=== PATIENT | male | born 1955 | race Caucasian/White ===

== ENCOUNTER 2019-08-14 09:51 | Outpatient (CLI) | payer MEDICARE, OTHER, SELFPAY ==
--- NOTE | 2019-08-14 | EST_ITS ---
Patient Info Name: Carlos Alberto Carmen Age: 64 years : 1955 Gender: Male Ht: 73 in Wt: 245 lbs BSA: 2.42 m2 Exam Date: 08/14/2019 11:04 AM Exam Location: [facility] [place] Stress Patient Status: Outpatient Admit Date: 08/14/2019 Staff Ordering Physician: Jim Rowley MD Attending Provider: Jim Rowley MD Nurse: Alberta Hackett, YESI, ACNP- Exam Type: CA stress tami w NM Study Info Indications Z01.818 - Encounter for other preprocedural examination A regadenoson stress test was performed. Summary 1. Nuclear test results to follow. 2. No abnormal ST-T wave changes with lexiscan. Protocol: Lexiscan Stress ECG Details Stage: REST Duration (min): 7 min : 5 sec HR (bpm): 49 SBP (mmHg): 158 DBP (mmHg): 79 Stage: REST Duration (min): 16 min : 13 sec HR (bpm): 56 SBP (mmHg): 158 DBP (mmHg): 79 Stage: STAGE 1 Duration (min): 1 min : 0 sec HR (bpm): 84 SBP (mmHg): 158 DBP (mmHg): 79 Stage: RECOVERY Duration (min): 1 min : 0 sec HR (bpm): 82 SBP (mmHg): 157 DBP (mmHg): 73 Stage: RECOVERY Duration (min): 2 min : 0 sec HR (bpm): 72 SBP (mmHg): 156 DBP (mmHg): 70 Stage: RECOVERY Duration (min): 3 min : 0 sec HR (bpm): 72 SBP (mmHg): 166 DBP (mmHg): 73 Stage: RECOVERY Duration (min): 3 min : 3 sec HR (bpm): 72 SBP (mmHg): 166 DBP (mmHg): 73 Rest HR: 56 bpm Peak HR: 88 bpm Rest Sys BP: 158 mmHg Peak Sys BP: 166 mmHg Max Pred HR: 155 bpm % Max Pred HR: 57 % Target HR: 132 bpm Max RPP: 14,608 bpm*mmHg BP Response: Normal blood pressure response Termination Reason: Completed protocol Cardiac Symptoms: Shortness of breath Total Time: 1 min : 0 sec Rest Cohen BP: 79 mmHg Peak Cohen BP: 73 mmHg Total Dose: 0.4 mg Resting ECG Sinus bradycardia. First degree A-V Block. Stress ECG No abnormal ST/T wave changes with exercise. Arrhythmias None. Report Signatures
--- NOTE | ~2019-08-14 | NM_ITS ---
EXAMINATION: NM tami stress w perfusion DATE: 08/14/2019 12:09 INDICATION: Coronary artery disease. Preoperative evaluation. TECHNIQUE: Rest images were obtained following intravenous administration of 9.9 mCi Tc99m tetrofosmi n (Myoview). The patient was infused intravenously with Lexiscan (Regadenoson). Then, 30.8 mCi Tc99m tetrofosmin (Myoview) was administered intravenously, and stress images were obtained. Data was recon structed into short axis and horizontal and vertical long axis SPECT images. Gated SPECT images were also obtained. COMPARISON: None. FINDINGS: There is no definite reversible or fixed perfusion abnormality to suggest ischemia or infar ction. There is normal left ventricular chamber size, wall motion and ejection fraction. Left ventr icular ejection fraction measures 58%. IMPRESSION: 1. Normal myocardial perfusion at rest and during stress. 2. Left ventricular ejection fraction measuring 58%. Reviewed, dictated and finalized at location A.
== END 2019-08-14 09:52 | disposition home or self-care (01) ==
PROVIDERS: PCP Internal Medicine; Visit Provider Internal Medicine Cardiovascular Disease
DX: Z01.818 Encounter for other preprocedural examination (principal); I25.10 Atherosclerotic heart disease of native coronary artery without angina pectoris
CPT/HCPCS: 78452; 93017; A9502; J2785

== ENCOUNTER 2019-08-15 00:15 | Outpatient (CLI) | payer MEDICARE, OTHER, SELFPAY ==
[2019-08-15 17:34] LABS: SARS-CoV-2 RNA PCR Negative
== END 2019-08-15 00:16 | disposition home or self-care (01) ==
LOC: ANHCOVIDDT 00:16
PROVIDERS: PCP Internal Medicine; Visit Provider Orthopaedic Surgery
DX: Z01.812 Encounter for preprocedural laboratory examination (principal); Z11.59 Encounter for screening for other viral diseases
CPT/HCPCS: 87635; C9803; U0003

== ENCOUNTER 2019-08-17 01:52 | Day surgery (SDC) | payer MEDICARE, OTHER, SELFPAY ==
[2019-08-14 12:59] VITALS: BMI 32.3
[2019-08-17] VITALS (11 sets, daily range): BP systolic 131–155; BP diastolic 59–73; PULSE 42–54; RESP 12–18; TEMP 36.2–36.4; O2SAT 95–99
--- NOTE | 2019-08-17 07:40 | WPDANESEPPF ---
Anes - Initial Pre Proc Eval Procedure: Operation Date: 08/17/19 12:30 Proposed Procedures p Right Mini Open Bicep Tenodesis with Arthroscopic Subscapularis Tendon Repair, Labral Debridement and Cyst Decompression - Antoine Green MD Date/Time: 08/17/19 07:40 Surgeon: Antoine Green MD Pre Op Diagnosis: Right Shoulder Bicep Tender Rupture, Right Shou Cy Patient Data Age: 64 Gender: M Height: 1.85 m Weight: 111.4 kg Allergies Allergy/AdvReac Type Severity Reaction Status Date / Time No Known Allergies Allergy Verified 08/17/19 11:11 Home Medications Medication Instructions Recorded Confirmed Type aspirin 81 mg tablet,delayed 81 mg PO DAILY 06/18/19 08/17/19 History release multivitamin 1 tablet PO DAILY 06/18/19 08/17/19 History nebivolol 2.5 mg tablet 2.5 mg PO DAILY 06/18/19 08/17/19 History rosuvastatin 40 mg sprinkle capsule 40 mg PO DAILY 06/18/19 08/17/19 History allopurinol 300 mg tablet 300 mg PO DAILY #90 tablet 07/11/19 08/17/19 Rx levothyroxine 50 mcg tablet 50 mcg PO DAILY #90 tablet 07/13/19 08/17/19 Rx icosapent ethyl 1 gram capsule 4 gm PO DAILY #120 cap 07/23/19 08/17/19 Rx Other Studies: Exam Type: CA stress tami w NM Study Info Indications Z01.818 - Encounter for other preprocedural examination A regadenoson stress test was performed. Summary 1. Nuclear test results to follow. 2. No abnormal ST-T wave changes with lexiscan. FINDINGS: There is no definite reversible or fixed perfusion abnormality to suggest ischemia or infarction. There is normal left ventricular chamber size, wall motion and ejection fraction. Left ventricular ejection fraction measures 58%. IMPRESSION: 1. Normal myocardial perfusion at rest and during stress. 2. Left ventricular ejection fraction measuring 58%. Patient hx anesthesia problems: none Family hx anesthesia problems: none [facility] Past Medical History Medical History (Updated 08/17/19 @ 07:42 by Lb Loza MD) 23-polyvalent pneumococcal polysaccharide vaccine contraindicated as received shingles vaccine within last 4 weeks Coronary artery disease involving [place] coronary artery of [place] heart Eczema Hypothyroidism, unspecified Mixed hyperlipidemia KEYON (obstructive sleep apnea) Partial tear of right subscapularis tendon Rotator cuff arthropathy of right shoulder Rupture of right long head biceps tendon Seasonal allergic rhinitis Surgical History Surgical History History of ankle surgery (~2017) History of bunionectomy (~1994) History of heart artery stent (~2015) Status post labral repair of shoulder (~2009) Social History Social History Smoking status: Never smoker Second hand tobacco smoke exposure: No Alcohol intake: current Anes - Eval Final PreProcedure Day of Procedure 08/17/19 07:40 Patient weight: obese Heart: regular rate and rhythm Lungs: clear to auscultation and normal air movement Airway: Mallampati scale class II Neurological: alert and oriented Last oral intake: >/= 8 hours ASA classification: III Emergent: no Anesthetic plan: proceed Anesthesia type and monitoring: general LMA and ETT Informed Consent: The patient's anesthetic plan and its attendant risks and benefits were discussed with the patient/family/POA. Questions were solicited and answers provided to the satisfaction of the patient/family/POA.
[2019-08-17] MEDS: LACTATED RINGERS 1,000 ML 30 ML IV CONT ×3 (11:10→16:27)
--- NOTE | 2019-08-17 11:43 | WPDANESPNB ---
Anes - Peripheral Nerve Block Date/Time: 08/17/19 11:43 I have discussed with the patient/family/POA the placement of a peripheral nerve block for post-operative pain management, including associated risks, benefits, complications, and side effects. Alternative methods of post-operative analgesia were detailed. Questions were solicited and answers provided to the satisfaction of the patient/family/POA. Time-Out: A pre-procedural Time-Out was completed immediately before starting the procedure and confirmed: Patient Identification, Site, Procedure, Patient Position and the Availability of Requisite Equipment. Clinical Indications: Acute post-operative pain management requested by the operative surgeon. Nerve Block Insertion Note Anes-nerve block: supraclavicular (20cc) right Patient position: supine Skin prep: chlorhexidine Needle: 22 gauge, stimulating, insulated echogenic needle. Needle length: 80 mm Technique: ultrasound (in plane) Injectate: bupivacaine 0.5% with epi 5 mcg/ml (20cc) Observations: tolerated well Complications: none Procedure start time:: 1230 Procedure end time:: 123
--- NOTE | 2019-08-17 13:45 | WPDHPUPDATE1 ---
History and Physical Update Update Date/Time: 08/17/19 13:45 History and Physical has been reviewed, including an updated exam of the patient. There are NO changes in the patient's condition. Risks, benefits, and alternatives have been discussed and questions answered. Patient agrees to proceed with procedure.
[2019-08-17] MEDS: ceFAZolin 2 GM/D5W 50 ML 2 GM/50 ML BAG IVPB (13:57)
[2019-08-17] MEDS: ONDANSETRON INJ 4 MG/2 ML VIAL IV PUSH (16:45)
[2019-08-17] MEDS: FAMOTIDINE 20 MG/2 ML VIAL IV PUSH (17:06)
--- NOTE | 2019-08-18 11:05 | PM.PROC ---
Procedure Note - Detailed Date of procedure: 08/17/19 Pre-op diagnosis: Right Shoulder Bicep Tender Rupture, Right Shou Cy Post-op diagnosis: other ( 1. Right shoulder proximal biceps tendon rupture. 2. Right shoulder subscapularis partial thickness tear. 3. Right shoulder degenerative superior and posterior labral tear, with paralabral cyst.) Procedure performed: 1. Arthrosocopic rotator cuff repair (subscapularis). 2. Arthroscopic labral debridement with posterior-superior labral cyst decompression. 3. Mini-open long head biceps subpectoral biceps tenodesis. Description of procedure: The biceps was disrupted and unstable. He had significant clinical symptoms. Biceps was displacing into a split in the upper subscapularis. The labrum showed significant degeneration throughout. At the 10 o'clock position there was significant cartilage disruption posteriorly. This was consistent with the location of the degenerative cyst. early degenerative grade 3 and 4 cartilage changes primarily at the periphery of the glenoid posteriorly and inferiorly. The humeral head appeared normal. The posterior rotator cuff was normal as well. Debridement was carried out with the arthroscopic shaver and the radiofrequency probe. The biceps tendon was released from its attachment at the superior labrum. The subscapularis was repaired with a single suture anchor horizontal mattress repair. The articular subscapularis showed low-grade articular side degenerative tearing; A2. The bursal rotator cuff showed minimal fraying. No significant evidence of impingement. Mini open biceps repair was accomplished with bone tunnels. Inspection of the tendon segement from the intertubercular groove showed extensive tendinosis of the biceps marked by flattening, degeneration and hyperemia. Implants: [employer] knotless peek suture anchor. [facility] Surgeon: Antoine Green MD Estimated blood loss (mL): 20 Complications: None Disposition: PACU Findings: Preoperative antibiotics were given. An interscalene block was administered in the preoperative area. The patient was bought brought to the operating room. A general anesthetic was administered. The patient was carefully positioned in the beach chair position. The head and neck were carefully positioned. The non operative extremity was also carefully positioned. The shoulder was prepped and draped in the usual sterile fashion. Examination was performed. Standard posterior and anterior arthroscopic portals were established. Inflow achieved with the arthroscopic pump using saline and epinephrine. The glenohumeral joint was carefully inspected. The biceps was released from the superior labrum. The labrum was carefully debrided and the cyst decompressed with the arthroscopic shaver. Gentle chondroplasty was performed along the periphery of the posterior and inferior glenoid. Slight debridement of the low-grade articular sided tearing of the supraspinatus was performed. The subscapularis was split. The medial portion appeared to be attached reasonably well. The upper portion was not retracted but was lifted off. It was in continuity with some bursal tissue. This was gently debrided and the upper anterior portion of the subscapularis was repaired with horizontal mattress sutures into a peek knotless anchor. The suture was passed with the suture Passer and suture shuttling. Attention was turned to the subacromial space. A complete bursectomy was performed. There was no evidence of impingement on the bursal side. Very minimal and superficial fraying was apparent on the rotator cuff, but essentially it appeared normal and healthy. There were no soft spots. The arthroscopic instruments were removed. An axillary incision was created at the pectoralis major insertion. The interval between the pectoralis and the short head of the biceps was dissected. The long head was identified. A retractor was placed at the pector
== END 2019-08-17 19:17 | disposition home or self-care (01) ==
PROVIDERS: PCP Internal Medicine; Visit Provider Orthopaedic Surgery
PROC: (CPT 29805; principal; 2019-08-17 12:30)
DX: S46.211A Strain of muscle, fascia and tendon of other parts of biceps, right arm, initial encounter (principal); S46.011A Strain of muscle(s) and tendon(s) of the rotator cuff of right shoulder, initial encounter; S43.431A Superior glenoid labrum lesion of right shoulder, initial encounter; M24.111 Other articular cartilage disorders, right shoulder; M67.813 Other specified disorders of tendon, right shoulder; G89.18 Other acute postprocedural pain; I10 Essential (primary) hypertension; E78.2 Mixed hyperlipidemia; E03.9 Hypothyroidism, unspecified; G47.33 Obstructive sleep apnea (adult) (pediatric); E66.9 Obesity, unspecified; Z68.32 Body mass index [BMI] 32.0-32.9, adult; I25.10 Atherosclerotic heart disease of native coronary artery without angina pectoris; Z95.5 Presence of coronary angioplasty implant and graft; Z79.899 Other long term (current) drug therapy; Z79.82 Long term (current) use of aspirin; X58.XXXA Exposure to other specified factors, initial encounter
CPT/HCPCS: 24342; 29827; 64415; A9270; J0131; J0330; J0690; J1100; J1170; J1200; J1885; J2250; J2405; J2704; J2710; J3010; J7120

== ENCOUNTER 2021-10-12 12:45 | Outpatient (CLI) | payer MEDICARE, OTHER, SELFPAY ==
--- NOTE | ~2021-10-12 | US_ITS ---
EXAMINATION: US renal BI DATE: 10/12/2021 13:57 INDICATION: Acute kidney failure TECHNIQUE: Multiple ultrasound grayscale images of the kidneys were obtained. COMPARISON: None. FINDINGS: The right kidney measures 12.8 x 7.1 x 5.9 cm. The left kidney measures 10.0 x 5.1 x 5.5 cm. The kidn eys demonstrate normal echogenicity. There is no hydronephrosis in either kidney. No stones identifi ed. The bladder is normal. IMPRESSION: 1. Normal kidneys without hydronephrosis. Reviewed, dictated and finalized at location A.
== END 2021-10-12 12:46 | disposition home or self-care (01) ==
PROVIDERS: PCP Internal Medicine; Visit Provider Internal Medicine Nephrology
DX: N17.8 Other acute kidney failure (principal); R79.89 Other specified abnormal findings of blood chemistry
CPT/HCPCS: 76775

== ENCOUNTER 2022-08-03 12:30 | Outpatient (CLI) | payer MEDICARE, SELFPAY ==
--- NOTE | ~2022-08-03 | US_ITS ---
EXAMINATION: US carotid duplex BI DATE: 08/03/2022 13:04 INDICATION: Carotid bruit TECHNIQUE: Grayscale, color Doppler, and pulsed Doppler images of the cervical carotid arteries were obtained. The degree of vessel stenosis is placed in one of the following categories: normal, <50%, 5 0-69%, >=70% but less than near-occlusion, near-occlusion, or total occlusion. Note that percent sten osis relative to normal distal artery lumen diameter is indirectly measured from velocity measurement s as described by Michael, et al. Radiology 2003; 229:340-346. Notes: Normal: Peak systolic velocity <125 centimeters/sec and no plaque <50%. Peak systolic velocity <125 ( EDV <40; ICA/CCA PSV ratio <2.0; used these factors only a tandem lesions or low cardiac output or co ntralateral disease) 50-69 %: PSV 125-230 (EDV 40-100; ratio 2-4) >= 70% but less than near occlusion: PSV greater than 230 (EDV > 100; ratio> 4.0) Near Occlusion: PSV that is variable; markedly narrowed lumen Occlusion: Absent flow on color/spectral Doppler and no lumen on ramirez scale. COMPARISON: None. FINDINGS: RIGHT: The right common carotid artery (CCA) peak systolic velocity (PSV) is 90 cm/s. The right internal car otid artery (ICA) PSV is 87 cm/s. The right ICA end-diastolic velocity (EDV) is 26 cm/s. The right IC A/CCA PSV ratio is 1.0. The external carotid artery (ECA) PSV is 73 cm/s. There is antegrade flow in the right vertebral artery. LEFT: The left CCA PSV is 105 cm/s. The left ICA PSV is 102 cm/s. The left ICA EDV is 35 cm/s. The left ICA /CCA PSV ratio is 1.0. The ECA PSV is 84 cm/s. There is antegrade flow in the left vertebral artery. IMPRESSION: 1. Less than 50% stenosis in the right internal carotid artery by sonographic criteria. 2. Less than 50% stenosis in the left internal carotid artery by sonographic criteria. Reviewed, dictated and finalized at location L. IMPRESSION: 1. Less than 50% stenosis in the right internal carotid artery by sonographic sandro almaguer. 2. Less than 50% stenosis in the left internal carotid artery by sonographic conor hernandez.
== END 2022-08-03 12:31 | disposition home or self-care (01) ==
LOC: ANHIMG 12:34
PROVIDERS: PCP Family Medicine; Visit Provider Internal Medicine Cardiovascular Disease
DX: R09.89 Other specified symptoms and signs involving the circulatory and respiratory systems (principal); I65.23 Occlusion and stenosis of bilateral carotid arteries
CPT/HCPCS: 93880

== ENCOUNTER → 2022-10-14 09:10 | Outpatient (CLI) | payer MEDICARE, SELFPAY ==
--- NOTE | ~2022-10-14 | MR_ITS ---
EXAMINATION: MR knee RT wo con DATE: 10/14/2022 10:01 INDICATION: Unspecified internal derangement of the right knee TECHNIQUE: Magnetic resonance imaging (MRI) of the right knee was performed without intravenous contr ast. Sequences included coronal PD-weighted FSE, coronal PD-weighted FS FSE, sagittal T2-weighted FS E, sagittal PD-weighted FS FSE and axial PD weighted fat saturated FSE. COMPARISON: None. FINDINGS: Medial compartment: Complex tear of the body and posterior horn of the medial meniscus which includes both longitudinal h orizontal component, radial component involving the inner third of the posterior horn and tear of ind eterminate morphology at the body. Articular cartilage is normal. Lateral compartment: Lateral meniscus is normal. Articular cartilage is normal. Patellofemoral compartment: Shallow chondral fissure at the cephalad through the patellar apical ridge. There is a bipartite martin lla with additional chondral fissures line the cephalad and caudal aspect of the syndesmosis. Deep ch ondral ulceration with underlying cortical irregularity involving the caudal half of the medial troch edwin, the caudal two thirds of the trochlear groove and central aspect of the lateral trochlea. Ligaments and tendons: Anterior and posterior cruciate ligaments are normal. Mild thickening and minimal increased signal th e proximal medial collateral ligament without significant surrounding edema consistent with likely sc arring related to chronic sprain. The fibular collateral ligament complex is normal. Patellar tendon is normal. Mild distal quadriceps tendinopathy. The visualized medial and lateral hamstring tendons a s well as the iliotibial band are normal. Fluid: Small right knee joint effusion. No loose osteochondral bodies identified. Small Khalil's cyst. Osseous/other: Bone alignment is normal. No fracture or pathologic marrow replacing process. IMPRESSION: 1. Complex tear of the body and posterior horn of the medial meniscus. 2. 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 3. Normal variant bipartite patella with mild tendinopathy at the distal quadriceps tendon. 4. Small right knee joint effusion and small Khalil's cyst. Reviewed, dictated and finalized at location A. IMPRESSION: 1. Complex tear of the body and posterior horn of the medial meniscus. 2. Mild to moderate patellofemoral osteoarthritis with signs of high-grade jyoti dromalacia in the trochlea and moderate grade patellar chondromalacia. 3. Normal variant bipartite patella with mild tendinopathy at the distal josé antonio ceps tendon. 4. Small right knee joint effusion and small Khalil's cyst.
== END ==
PROVIDERS: PCP Nurse Practitioner; Visit Provider Physician Assistant Surgical
DX: M23.91 Unspecified internal derangement of right knee (principal); S83.231A Complex tear of medial meniscus, current injury, right knee, initial encounter; M17.11 Unilateral primary osteoarthritis, right knee; M22.41 Chondromalacia patellae, right knee; M25.461 Effusion, right knee; M71.21 Synovial cyst of popliteal space [Baker], right knee; T14.90XA Injury, unspecified, initial encounter
CPT/HCPCS: 73721

== ENCOUNTER 2022-11-15 10:01 | Outpatient (CLI) | payer MEDICARE, SELFPAY ==
--- NOTE | 2022-11-15 10:19 | ECG_ITS ---
Measurements Intervals [place] Rate: 48 P: 50 NM: 266 QRS: -28 QRSD: 124 T: 4 QT: 443 QTc: 396 Interpretive Statements SINUS BRADYCARDIA WITH FIRST DEGREE AV BLOCK INCOMPLETE RIGHT BUNDLE BRANCH BLOCK LEFT VENTRICULAR HYPERTROPHY MINIMAL Q WAVES- HIGH LATERAL LEADS BORDERLINE ECG NO PREVIOUS ECG AVAILABLE FOR COMPARISON Electronically Signed On 11-15-2022 11:20:25 CDT by Tung Harris D.O.
[2022-11-15 11:03] LABS: Prothrombin Time 13.2 Seconds (11.1-14.7)
[2022-11-15 11:05] LABS: Partial Thromboplastin Time 26.3 SECONDS (22.3-36.8)
== END 2022-11-15 10:02 | disposition home or self-care (01) ==
LOC: ANHSURGERY 10:07
PROVIDERS: Anesthesiology; PCP Nurse Practitioner; Visit Provider Orthopaedic Surgery
DX: I12.9 Hypertensive chronic kidney disease with stage 1 through stage 4 chronic kidney disease, or unspecified chronic kidney disease (principal); N18.31 Chronic kidney disease, stage 3a
CPT/HCPCS: 36415; 85610; 85730; 93005

== ENCOUNTER 2022-11-18 01:21 | Day surgery (SDC) | payer MEDICARE, SELFPAY ==
[2022-11-11 15:54] VITALS: BMI 34.6
--- NOTE | 2022-11-11 16:15 | PC.NURSE ---
Report to the Outpatient Waiting Room, entrance under the green pavilion located off [facility], at time __8:30AM on date __11/18/22 . Planned Procedure Time: __10:30AM . Time changes happen often and if your time is changed the preop area will call you the afternoon before. - You and your visitor will be asked to self-screen and do not enter if you have any COVID symptoms. - A mask is optional within the hospital at this time. Patients may have clear liquids (water, carbonated beverages, clear teas, apple juice) until 3 hours prior to surgery with a maximum of 20 ounces. - No food from midnight until time of surgery - Infants may have breast milk until 4 hours before surgery, infant formula 6 hours prior to surgery. - Children will be allowed to drink immediately following surgery. If applicable, please bring a bottle or sippy cup to assist with drinking. Juice, water, soda, and popsicles are readily available. For infants on formula, please bring formula the day of surgery. Pacifiers are allowed. Take the following medications with a SIP of water the morning of surgery: ___LEVOTHYROXINE, NEBIVOLOL DO NOT STOP ANY OF YOUR OTHER PRESCRIPTION MEDICATIONS PRIOR TO SURGERY ?EXCEPT THE FOLLOWING Medications to discontinue per physician ___HOLD ASPIRIN AND ALL VITAMINS/SUPPLEMENTS 7 DAYS PRE-OP PER DR CAT (PER PATIENT) Date to take last dose___11/11/22 Please no make-up, nail bengali, hairspray, perfume, deodorant, or body powder the day of surgery. No jewelry (including any body piercings) or valuables the day of surgery, leave them at hoing. Children are encouraged to wear [email or web address].me. Please take a shower or bath the night before, or the morning of, surgery with an antibacterial soap. Wear comfortable, loose fitting clothing. - Jewelry must be removed prior to entering the operating room. Rings and piercings that are not removed may be cut off. - The hospital will not accept responsibility for valuables. - Please leave all valuables, including medications, at home the day of surgery. If you are going home after surgery, a licensed hi low truck driver must drive you home. - NO public transportation without another adult if you receive anesthesia. - We recommend that an adult stay with you for 24 hours following discharge. - We also recommend that you do not drive, make important decision, drink alcoholic beverages, or take any drugs that were not prescribed by your health care provider for at least 24 hours after your discharge time. Follow any additional instructions given to you from your surgeon. If you or anyone in your household have experienced Covid symptoms in the past week, please notify your surgeon or the nurse liaison at the phone number below for possible testing. Telephone instructions given to ___patient and asked if any additional questions and then verbalized understanding. Patient advised to call surgeon office or pre surgery nurse liaison [phone] if any additional questions.
[2022-11-18] VITALS (7 sets, daily range): BP systolic 130–144; BP diastolic 50–69; PULSE 53–74; RESP 16–18; TEMP 36.4–36.5; O2SAT 96–100; BMI 34.4
--- NOTE | 2022-11-18 07:17 | WPDHPUPDATE1 ---
History and Physical Update Update Date/Time: 11/18/22 07:17 History and Physical has been reviewed, including an updated exam of the patient. There are NO changes in the patient's condition. Risks, benefits, and alternatives have been discussed and questions answered. Patient agrees to proceed with procedure.
[2022-11-18] MEDS: LACTATED RINGERS 1,000 ML 30 ML IV CONT (09:15)
[2022-11-18] MEDS: KETOROLAC 15 MG/ML VIAL (*BKC) IV PUSH (09:42)
[2022-11-18] MEDS: ACETAMINOPHEN 500 MG TABLET 1000 MG PO (09:42)
--- NOTE | 2022-11-18 09:49 | WPDANESEPPF ---
Anes - Initial Pre Proc Eval Procedure: Operation Date: 11/18/22 10:30 Proposed Procedures p Right Knee Arthroscopic Partial Medial Meniscectomy - Antoine Green MD Date/Time: 11/18/22 09:49 Surgeon: Antoine Green MD Pre Op Diagnosis: Rt Knee Medial Meniscus Tear Patient Data Age: 67 Gender: M Height: 1.85 m Weight: 118.6 kg Last Vital Signs Temp 36.4 C 11/18/22 08:32 Pulse 55 L 11/18/22 08:32 Resp 16 11/18/22 08:32 BP 139/68 11/18/22 08:32 Pulse Ox 97 11/18/22 08:32 O2 Del Method Room Air 11/18/22 08:32 Allergies Allergy/AdvReac Type Severity Reaction Status Date / Time No Known Allergies Allergy Verified 11/18/22 09:30 Home Medications Medication Instructions Recorded Confirmed Type aspirin 81 mg tablet,delayed 81 mg PO DAILY 06/18/19 11/11/22 History release (Adult Low Dose Aspirin) multivitamin 1 tablet PO DAILY 06/18/19 11/11/22 History rosuvastatin 40 mg tablet 40 mg PO DAILY 90 days #90 tabs 12/20/19 11/11/22 Rx allopurinol 300 mg tablet See Rx Instructions .Route 10/07/22 11/11/22 Rx .COMPLEX #90 tabs icosapent ethyl 1 gram capsule 4 g PO DAILY 11/11/22 11/11/22 History (Vascepa) levothyroxine 75 mcg tablet 75 mcg PO QAM 11/11/22 11/11/22 History (Synthroid) nebivolol 2.5 mg tablet (Bystolic) 2.5 mg PO QAM 11/11/22 11/11/22 History nitroglycerin 0.4 mg sublingual 0.4 mg sublingual Q5-15M PRN Chest 11/11/22 11/11/22 History tablet Pain sildenafil 25 mg tablet (Viagra) 25 mg PO DAILY PRN Erectile 11/11/22 11/11/22 History Dysfunction tramadol 50 mg tablet 50 mg PO HS PRN Pain 11/11/22 11/11/22 History hydrocodone 5 mg-acetaminophen 325 1 - 2 tablet PO Q4-6H PRN pain #30 11/18/22 Rx mg tablet tabs Patient hx anesthesia problems: none Family hx anesthesia problems: none Results Review: All pre-operative results and documents have been reviewed as part of the pre-operative evaluation. [facility] Past Medical History Medical History 23-polyvalent pneumococcal polysaccharide vaccine contraindicated as received shingles vaccine within last 4 weeks Abnormal blood chemistry Arthritis of subtalar joint CAD S/P percutaneous coronary angioplasty Coronary artery disease involving buckland coronary artery of buckland heart Eczema Encounter for special screening examination for neoplasm of prostate Hyperglycemia Hypothyroidism, unspecified Mixed hyperlipidemia KEYON (obstructive sleep apnea) Partial tear of right subscapularis tendon Rotator cuff arthropathy of right shoulder Rupture of right long head biceps tendon Screening PSA (prostate specific antigen) Seasonal allergic rhinitis Vitamin D deficiency, unspecified Surgical History Surgical History History of ankle surgery (~2017) History of bunionectomy (~1994) History of heart artery stent (~2015) Status post labral repair of shoulder (~2009) Family History Family History Grandparent Malignant neoplasm of prostate Father Family history of malignant neoplasm of kidney Unknown Heart disease Other Family history of malignant neoplasm Social History Social History Smoking packs per day: 1 Smoking cigarettes per day: 20.0 Years smoked: 20 Smoking pack-years: 20.00 Smoking status: Former smoker Tobacco type: cigarettes Second hand tobacco smoke exposure: No Smoking end date: 08/21/89 Alcohol intake: current Drinks per week: 3 Substance use: never Substance use type: does not use Lack of Transportation: No Lack of Food: Never True Current Housing: I Have Housing Concerned About Future Housing: No Difficulty Paying Gas/Electric Bills: No Difficulty Paying for Meds: No Currently Unemployed: No Education: High School Diploma/GED Jacqueline
[2022-11-18] MEDS: ceFAZolin 2 GM/D5W 50 ML 2 GM/50 ML BAG IVPB (10:28)
[2022-11-18] MEDS: BUPIVACAINE/EPINEPHRINE 0.5% 50 ML VIAL 30 ML INFILTRATE (10:51)
--- NOTE | 2022-11-18 11:34 | W.PM.PROC2 ---
Procedure Note - Detailed Date of Procedure 11/18/22 Pre-op Diagnosis Rt Knee Medial Meniscus Tear Post-op Diagnosis Same Procedure Performed Arthroscopic partial medial meniscectomy, right knee. 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 Lateral femur chondromalacia grade 0, lateral tibia grade 0. Patellar grade 1, trochlea grade 2. Description of Procedure The patient was identified and the surgical site confirmed and signed in the preoperative holding area. Antibiotics were started per protocol. He was brought to the operative room and transferred to the OR table. A general anesthetic was administered. Supine position with the operative lower extremity position in the leg knott after placement of a well padded tourniquet. The leg support was lowered and the contralateral limb was supported with a soft bolster. The knee was prepped and draped in the usual sterile fashion. A time-out was performed. The portal sites were marked and infiltrated with 0.5% Marcaine 20 mL. The limb was exsanguinated and the tourniquet inflated to 300 mL Hg. Standard inferolateral and inferomedial portals were established. Inflow was obtained with the saline pump. The camera was introduced. Diagnostic inspection of the joint was accomplished. The meniscus was debrided with the arthroscopic shaver and punches until stable. The radiofrequency probe was also used for further d?bridement. The arthroscopic instruments were removed. The tourniquet released and wounds closed with subcutaneous 4-0 Monocryl absorbable suture. Steri strips and a sterile dressing were applied. A light elastic wrap was placed. The patient was extubated and brought to the recovery room in stable condition. Estimated Blood Loss 5 Tourniquet Time 21 Drains No Complications No immediate complications Condition Stable Disposition PACU [facility] Billing Surgery - Charge Forward: Surgery Billing
[2022-11-18] MEDS: oxyCODONE HCL (*CRX) 5 MG TAB IR PO (12:43)
== END 2022-11-18 13:10 | disposition home or self-care (01) ==
PROVIDERS: PCP Nurse Practitioner; Visit Provider Orthopaedic Surgery
PROC: (CPT 29870; principal; 2022-11-18 10:30)
DX: M23.331 Other meniscus derangements, other medial meniscus, right knee (principal); M22.41 Chondromalacia patellae, right knee; I25.10 Atherosclerotic heart disease of native coronary artery without angina pectoris; E03.9 Hypothyroidism, unspecified; E78.2 Mixed hyperlipidemia; G47.33 Obstructive sleep apnea (adult) (pediatric); E55.9 Vitamin D deficiency, unspecified; Z95.5 Presence of coronary angioplasty implant and graft; Z87.891 Personal history of nicotine dependence; E66.9 Obesity, unspecified; Z68.34 Body mass index [BMI] 34.0-34.9, adult; Z79.82 Long term (current) use of aspirin
CPT/HCPCS: 29881; A9270; J0690; J1100; J1885; J2250; J2405; J2704; J3010; J7120

== ENCOUNTER 2023-11-06 12:48 | Emergency (ER) | payer MEDICARE, SELFPAY ==
--- NOTE | ~2023-11-06 | XR_ITS ---
EXAMINATION: XR chest 2V DATE: 11/06/2023 13:12 INDICATION: Cough TECHNIQUE: PA and lateral views of the chest were obtained. COMPARISON: Chest radiograph and CT dated 12/13/2016 FINDINGS: The lungs are clear with no focal airspace opacities, pulmonary edema, pleural effusion or pneumothor ax. The cardiomediastinal silhouette is normal. Couple old healed posterior left third-sixth rib frac tures. IMPRESSION: 1. No acute cardiopulmonary disease. Reviewed, dictated and finalized at location A.
[2023-11-06 12:56] VITALS: BP 133/62; PULSE 58; RESP 18; TEMP 36.6; O2SAT 98
[2023-11-06 12:57] VITALS: BP 133/62; PULSE 58; RESP 18; TEMP 36.6; O2SAT 98
--- NOTE | 2023-11-06 13:06 | ED.URI ---
HPI - URI/Sore Throat General Chief Complaint: Upper Respiratory Infection Stated Complaint: cold symthoms Source: patient Mode of arrival: ambulatory Limitations: no limitations History of Present Illness HPI Narrative: 68-year-old male presents to [facility] with complaints of 2 day history of nonproductive cough, sinus pressure, nasal congestion, runny nose and body aches. Patient has been taking [id number] cold medications and multivitamins with little relief. Patient denies sick contacts. Patient reports that he did recently travel to [place] last week. Patient is a nonsmoker. MD elicited complaint: cough, rhinorrhea and nasal congestion Onset (ago): day(s) (2) Severity: mild Able to tolerate fluids by mouth: Yes Treatments prior to arrival: cold medicine Related Data Home Medications Medication Instructions Recorded Confirmed aspirin 81 mg tablet,delayed 81 mg PO DAILY 06/18/19 11/06/23 release (Adult Low Dose Aspirin) multivitamin 1 tablet PO DAILY 06/18/19 11/06/23 nebivolol 2.5 mg tablet (Bystolic) 2.5 mg PO QAM 11/11/22 11/06/23 nitroglycerin 0.4 mg sublingual 0.4 mg sublingual Q5-15M PRN Chest 11/11/22 11/06/23 tablet Pain sildenafil 25 mg tablet (Viagra) 25 mg PO DAILY PRN Erectile 11/11/22 11/06/23 Dysfunction magnesium 200 mg tablet 200 mg PO DAILY 09/27/23 11/06/23 Allergies Allergy/AdvReac Type Severity Reaction Status Date / Time No Known Allergies Allergy Verified 11/06/23 12:56 Review of Systems Constitutional: Constitutional: Denies chills, Denies fatigue, Denies fever(s) and Denies weakness Comments: Body aches ENT: Denies dizziness, Denies epistaxis, Reports nasal congestion and Denies sore throat Cardiovascular: Cardiovascular: Denies chest pain Respiratory: Respiratory: Denies chest congestion, Reports cough, Denies dyspnea and Denies wheezing Gastrointestinal: Gastrointestinal: Denies diarrhea, Denies nausea and Denies vomiting Integumentary/Breasts: Skin/Breast: Denies erythema and Denies rash Neurologic: Denies dizziness, Denies syncope and Denies headache(s) [facility] Past Medical History Medical History 23-polyvalent pneumococcal polysaccharide vaccine contraindicated as received shingles vaccine within last 4 weeks Abnormal blood chemistry Arthritis of subtalar joint CAD S/P percutaneous coronary angioplasty Coronary artery disease involving hoh coronary artery of hoh heart Eczema Encounter for special screening examination for neoplasm of prostate Hyperglycemia Hypothyroidism, unspecified Mixed hyperlipidemia KEYON (obstructive sleep apnea) Partial tear of right subscapularis tendon Rotator cuff arthropathy of right shoulder Rupture of right long head biceps tendon Screening PSA (prostate specific antigen) Seasonal allergic rhinitis Vitamin D deficiency, unspecified Surgical History Surgical History History of ankle surgery (~2017) History of bunionectomy (~1994) History of heart artery stent (~2015) History of meniscectomy of right knee (~11/18/22) medial Status post labral repair of shoulder (~2009) Family History Family History Grandparent Malignant neoplasm of prostate Father Family history of malignant neoplasm of kidney Unknown Heart disease Other Family history of malignant neoplasm Social History Social History Smoking packs per day: 1 Smoking cigarettes per day: 20.0 Years smoked: 20 Smoking pack-years: 20.00 Smoking status: Former smoker Tobacco type: cigarettes Second hand tobacco smoke exposure: No Smoking end date: 08/21/89 Alcohol intake: current Drinks per week: 3 Substance use: never Substance use type: does not use Do You Feel Safe in your Home?: Yes Lack of Transportati
[2023-11-06 13:26] LABS: EDCOVIDSCREEN Negative (Negative); EDINFLUASCREEN Negative (Negative); EDINFLUBSCREEN Negative (Negative)
== END 2023-11-06 13:34 | disposition home or self-care (01) ==
PROVIDERS: Emergency Provider Nurse Practitioner Family; PCP Nurse Practitioner
DX: B34.9 Viral infection, unspecified (principal); Z20.822 Contact with and (suspected) exposure to COVID-19; Z87.891 Personal history of nicotine dependence; I25.10 Atherosclerotic heart disease of native coronary artery without angina pectoris; E03.9 Hypothyroidism, unspecified; E78.2 Mixed hyperlipidemia; E55.9 Vitamin D deficiency, unspecified; Z95.5 Presence of coronary angioplasty implant and graft
CPT/HCPCS: 71046; 87635; 87804; 99213; G0463

== ENCOUNTER 2024-10-12 08:34 | Outpatient (CLI) | payer MEDICARE, SELFPAY ==
--- NOTE | ~2024-10-12 | XR_ITS ---
XR shoulder RT min 2V 10/12/2024 08:53 Indication: Right shoulder pain Procedure: 4 views right shoulder Comparison: Comparison to multiple prior studies sequentially, with oldest reviewed study dated 02/12/2019. Findings: There is an osteochondroma originating from the proximal humeral metaphysis. There is mild polyarticular osteoarthritis of the shoulder. No acute fracture, subluxation or dislocation. Impression: 1: Mild osteoarthritis of the right shoulder. Reviewed, dictated and finalized at location O. Impression: 1: Mild osteoarthritis of the right shoulder.
--- OUTSIDE RECORDS SUMMARY | 2024-10-12 08:40 | XMS_ITS | Clinical Summary ---
Author Organization [facility] Address [address] [place] [address] Care Team Providers Care Board Runner Name Role Phone Unavailable Primary Care Provider Unavailabl e Source Comments [facility],non-owned Affiliates and Associated Physician Practices is amultiple site organization consisting of ambulatory clinics and hospital sitesin [place], [place], [place] and [place]. This disclosure is being madepursuant to the Care Everywhere program and may not contain all information available regarding this patient. 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 Gender Identity Not on file Sexual Orientation Not on file Plan of Treatment Health Maintenance Due Date Last Done Comments COLOGUARD (AGES 45-75) - COL ON CA SCREENING 1954 COLON MONITORING 1954 COLONOSCOPY - COLON CA SCREENING 1954 CT COLONOGRAPHY - COLON CA SCREENING 1955 Colorectal Cancer Screening 1954 FIT - COLON CA SCREENING 1954 FLEX SIG - COLON CA SCREENING 1954 LIPID TESTING 1955 HEPATITIS C SCREENING 04/19/1972 PNEUMOCOCCAL VACCINE 50+ (1 of 1 - PCV) 2004 ZOSTER VACCINE (1 of 2) 2004 COVID-19 VACCINE ( - 2023-2 5 season) 2023 DEPRESSION SCREENING 02/22/2024 INFLUENZA VACCINE (#1) 2024 DTAP/TDAP/TD VACCINES (2 - T d or Tdap) 11/04/2027 11/03/2017 Respiratory Syncytial Virus (RSV) Vaccine Pt: or over 60 yrs (1 - 1-dose 75+ series) 2029 HEPATITIS B VACCINE Aged Out No longe r eligible based on patient's age to complete this topic HIB VACCINE Aged Out No longer eligi ble based on patient's age to complete this topic HPV VACCINE Aged Out No longer eligi ble based on patient's age to complete this topic MENINGOCOCCAL (Group B) VACC INE SHARED DECISION-MAKING Aged Out No longer eligibl e based on patient's age to complete this topic MENINGOCOCCAL GROUPS A/C/Y/W VACCINE Aged Out No longer eligible b ased on patient's age to complete this topic Insurance AETNA MEDICARE AETNA AETNA MEDICARE AETNA AETNA
--- OUTSIDE RECORDS SUMMARY | 2024-10-12 08:40 | XMS_ITS | Encounter Summary ---
Author Organization [facility] Address [address] [place] [address] Care Team Providers Care Rn Intern Name Role Phone Unavailable Primary Care Provider Unavailabl e Encounter Details Date Type Department Care Team (Late st Contact Info) Description 07/06/2019 Lab Requisition [facility] [address] [place] [address] Martha Thibodeaux DO 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 Gender Identity Not on file Sexual Orientation Not on file documented as of this encounter Plan of Treatment Not on file documented as of this encounter Procedures Procedure Name Priority Date/Time Associated Diagnosis Comments DERMATOPATHOLOGY Routine 07/05/2019 12:0 0 AM CDT documented in this encounter Results * DERMATOPATHOLOGY (07/05/2019 12:00 AM CDT) Case Report Dermatopathology Report Case: [id number] Authorizing Provider: Martha Thibodeaux DO Collected: 07/05/2019 12:00 AM Ordering Location: [facility] Received: 07/06/2019 06:46 AM Pathologist: Niharika Verduzco MD Specimen: Skin, right cheek 0 12:54 PM CDT DERMATOPATHOLOGY LABORATORY Final Diagnosis Specimen A. SKIN, right cheek: ACTINIC KERATOSIS; EXTENDING TO THE BASE OF THE SPECIMEN (L57.0) (see microscopic description and comment) 0 12:54 PM CDT DERMATOPATHOLOGY LABORATORY at 1254 CDT Clinical History AK R/O NMSC 0 12:54 PM CDT DERMATOPATHOLOGY LABORATORY Gross Description Specimen A: Received is one formalin filled container labeled with the patient's name and designated right cheek. The specimen consists of a shave biopsy measuring 6x4x1 mm. Jar 0. 0 12:54 PM CDT DERMATOPATHOLOGY LABORATORY Microscopic Description Specimen A. SKIN, right cheek: There is focal parakeratosis. The lower half of the epidermis shows disorderly maturation of keratinocytes with nuclear pleomorphism. Follicular extension is present. This process extends to the base of the specimen. COMMENT: A squamous cell carcinoma cannot be ruled out. 0 12:54 PM CDT DERMATOPATHOLOGY LABORATORY Disclaimer An external and internal positive and negative controls are appropriate for the histochemical, immunohistochemical and immunofluorescence stain(s) in this case (if any), except where stated explicitly. The performance characteristics of the stain(s) cited in this report were developed and its performance characteristic determined by the Dermatopathology Laboratory at [facility], directed by Dr. Nuris Davis. These tests need not be, and therefore are not, approved by the [place] Food and Drug Administration. The tests are used for clinical purposes. Billing Codes Specimen Charges Stain Charges 71414 1 0 12:54 PM CDT DERMATOPATHOLOGY LABORATORY Embedded Images 0 12:54 PM CDT DERMATOPATHOLOGY LABORATORY Pathology/Cytolog y TISSUE SPECIMEN FROM SKIN / Unknown 07/05/2019 07/06/2019 6:46 AM CDT us Martha Thibodeaux DO LAB - PATHOLOGY/CYTOLOGY ORDERABLES Final Result DERMATOPATHOLOGY LABORATORY [facility] - Department of Dermatology [employer] [place] [address], [facility] [phone] documented in this encounter Visit Diagnoses Not on filedocumented in this encounter
--- OUTSIDE RECORDS SUMMARY | 2024-10-12 08:40 | XMS_ITS | Clinical Summary ---
Author Organization [facility] Address [facility] [place] [address] Care Team Providers Care It Project Lead Name Role Phone None, Provider MD Primary Care Provider Unavaila ble Social History Tobacco Use Types Packs/Day Years Used Date Smoking Tobacco: Never Assessed Sex and Gender Information Value Date Recorded Sex Assigned at Not on file Legal Sex Male 6:45 PM CDT Gender Identity Not on file Sexual Orientation Not on file Plan of Treatment Health Maintenance Due Date Last Done Comments Colorectal Cancer Screening Colonoscopy (10 Years) 1954 Hepatitis C 1972 Pneumococcal Vaccine: 50+ Years (1 of 1 - PCV) 2004 Annual Medicare Wellness Visit 04/25/2019 COVID-19 Vaccine (1 - 2023-2 5 season) 2023 DTaP, Tdap and Td Vaccines ( 2 - Td or Tdap) 11/04/2027 11/03/2017 RSV Immunization or 60+ Years (1 - 1-dose 75+ series) 2029 Zoster Vaccines Completed 03/09/2019, 01/02/2019 Meningococcal B Vaccine Aged Out No l onger eligible based on patient's age to complete this topic Meningococcal Vaccine Aged Out No mel martinez eligible based on patient's age to complete this topic RSV Immunizations Under 20 Months Aged Out No longer eligible b ased on patient's age to complete this topic Insurance MEDICARE AETNA Care Teams It Project Lead Relationship Specialty Start Date End Date None, Provider, PCP - General 07/22/20
--- OUTSIDE RECORDS SUMMARY | 2024-10-12 08:40 | XMS_ITS | Clinical Summary ---
Author Organization [facility] Address [address] [phone] Care Team Providers Care Epic Cupid Analyst Name Role Phone Fawad Bess NP Primary Care Provider [phone] Allergies No known active allergies Medications multivitamin capsule 0 0 05/04/19 17 Active Additional Information Patient taking differently: 1 capsule oral Daily, Reported on 09/04/2024 aspirin 81 mg tablet take 1 tablet by oral route every day 0 0 12/02/19 16 Active allopurinol (ZYLOPRIM) 300 mg tablet take 1 tablet by oral route every day 0 0 12/02/19 16 Active icosapent ethyl (VASCEPA) 1 gram capsule take 2 capsule by oral route 2 times every day with food swallowing whole. Do not chew, open, dissolve and/or crush. 0 0 12/02/19 16 Active Additional Information Patient taking differently: 1 g Daily, 4 capsules daily, Reported on 09/04/2024 Synthroid 75 mcg tablet 06/21/19 21 Active sildenafiL, pulm.hypertensi on, (REVATIO) 20 mg tabletIndicatio ns:Pulmonary Arterial Hypertension Take 1 tablet (20 mg total) by mouth daily as needed Active nebivoloL (BYSTOLIC) 2.5 mg tablet TAKE 1 TABLET DAILY 90 tablet 3 09/07/19 25 Active rosuvastatin (CRESTOR) 40 mg tablet TAKE 1 TABLET DAILY 90 tablet 3 09/07/19 25 Active nitroglycerin (NITROSTAT) 0.4 mg SL tabletIndicatio ns:Coronary artery disease involving [place] coronary artery of [place] heart without angina pectoris PLACE 1 TABLET UNDER THE TONGUE AND ALLOW TODISSOLVE EVERY 5 MINUTES NEEDED FOR CHESTPAIN 25 tablet 3 09/20/19 25 Active nitroglycerin (NITROSTAT) 0.4 mg SL tabletIndicatio ns:Coronary artery disease involving [place] coronary artery of [place] heart without angina pectoris Place 1 tablet (0.4 mg total) under the tongue every 5 (five) minutes as needed for chest pain 25 tablet 11/14/19 24 025 Discontinued Active Problems Problem Noted Date Diagnosed Date Systolic murmur 07/26/2022 Bruit of right carotid artery 07/26/2022 Restless sleeper 09/06/2019 Class 1 obesity due to exces s calories with serious comorbidity and body mass index (BMI) of 34.0 to 34.9 in adult 02/22/2018 Severe obesity 02/22/2018 Adult BMI 32.0-32.9 kg/sq m 09/08/2016 KEYON on CPAP 09/08/2016 Allergic rhinitis 09/08/2016 Assessment & Plan (09/08/2016 9:58 AM CDT): Ryan esparza Obstructive sleep apnea syndrome 09/08/2016 H/O non-ST elevation myocardial infarction (NSTE [place]) 08/04/2016 S/P coronary artery stent placement 08/04/2016 Presence of coronary angioplasty implant and gra ft 08/04/2016 Undiagnosed disease or syndrome present 01/27/20 16 Overview (08/01/2023): S/P coronary artery stent placement S/P coronary artery stent placement Old myocardial infarction 01/27/2016 Overview (08/01/2023): NSTEMI (non-ST elevated myocardial infarction) Benign hypertension 01/27/2016 Overview (05/27/2016): HTN (hypertension), benign Drug-induced erectile dysfunction 01/27/2016 Overview (05/27/2016): Drug-induced erectile dysfunction Coronary atherosclerosis 12/02/2015 Overview (08/01/2023): Coronary artery disease involving [place] coronary artery of [place] heart without angina pectoris Coronary artery disease involving [place] coronary artery of [place] heart without angina pectoris Mixed hyperlipidemia 12/02/2015 Overview (08/01/2023): Mixed hyperlipidemia Mixed hyperlipidemia Resolved Problems Problem Noted Date Diagnosed Date Resolved Date Dyslipidemia 08/04/2016 07/26/2022 Encounters Date Type Department Care Team Description 09/04/2024 9:30 AM CDT Office Visit [facility] [address] [address] [address] [place] [address] Kang Oscar MD Atherosclerosis of nul[place] coronary artery of [place] heart without angina pectoris (Primary Dx) 08/21/2024 1:00 PM CDT Office Visit [facility] [address] [facility] [address] [place] [phone] Lidia Ashby NP Obstructive sleep apnea syndrome (Primary Dx); Benign hypertension; Class 1 obesity due to excess calories with serious comorbidity and body mass index (BMI) of 34.0 to 34.9 in adult from Last 3 Months Surgical History Surgery Date Site/Laterality Comments CORONARY STENT PLACEMENT coronary stents SHOULDER SURGERY 08/17/2019 Right KNEE SURGERY Right Medical History Medical History Date Comments Hx Other Medical transient hemat uria; Comments: AMD 12/01/2015 - Hypercholesterolemia High choles terol; Comments: AMD 12/01/2015 - Chronic coronary artery disease Coronary artery disease Hypertension 2016 Hypertension Hx Other Medical Gout; Comments: MPB 04/20/2016 - Heart disease 2016 Sleep apnea 2016 Family History Medical History Relation Name Comments Heart disease Brother Micky Carmen Cancer Father Jesus Carmen Lung cancer Father Jesus Carmen Cancer, lung; C ause of : Cancer, lung Hearing loss Mother Bettina Riley Hypertension Mother Bettina Riley Hypertension; Relation Name Status Comments Brother Micky Carmen Father Jesus Carmen Mother Bettina Riley Social History Tobacco Use Types Packs/Day Years Used Date Smoking Tobacco: Former Cigarettes Smokeless Tobacco: Never Tobacco Cessation:Counseling Given: Not Answered Alcohol Use Standard Drinks/Week Comments Yes 0 (1 standard drink = 0.6 oz pur e alcohol) Sex and Gender Information Value Date Recorded Sex Assigned at Not on file 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 Gender Identity Not on file Sexual Orientation Not on file Obstetrics History Last Filed Vital Signs Vital Sign Reading Time Taken Comments Blood Pressure 114/70 09/04/2024 9:24 AM CDT Pulse 50 09/04/2024 9:24 AM CDT Temperature 36.7 C (98.1 F) 08/21/2024 1:05 PM CDT Respiratory Rate 18 08/21/2024 1:05 PM CDT Oxygen Saturation 95% 09/04/2024 9:24 AM CDT Inhaled Oxygen Concentration - - Weight 117 kg (258 lb) 09/04/2024 9:24 AM CDT Height 182.9 cm (6') 09/04/2024 9:24 AM CDT Body Mass Index 34.99 09/04/2024 9:24 AM CDT Plan of Treatment Health Maintenance Due Date Last Done Comments Colon Cancer Screening-Colonoscopy 1954 Depression Screening 1954 Fall Risk Assessment 1955 Hepatitis C Screening 1954 Hepatitis B Screening 1972 Pneumococcal vaccine 65+ (1 of 1 - PCV) 2004 Zoster Vaccine (1 of 2) 2004 Abdominal Aortic Aneurysm (AAA) Screen 04/25/2019 Well Visit 65+ 04/25/2019 Influenza Vaccine (#1) 2024 DTaP/Tdap/Td Vaccine (2 - Td or Tdap) 11/04/2027 Procedures Procedure Name Priority Date/Time Associated Diagnosis Comments POCT LIPID PANEL Routine 09/04/2024 9:18 AM CDT Atherosclerosis of nul[place] coronary artery of [place] heart without angina pectoris from Last 3 Months Results * POCT lipid panel (09/04/2024 9:18 AM CDT) Cholesterol, POC 151 <200 MG/DL HDL, POC 40 >=40 mg/dL Triglycerides, POC 101 <=149 mg/dL LDL Cholesterol POC 90 <=129 mg/dL Chol/HDL Ratio, POC 2.2 NONE Non-HDL Cholesterol, POC 110 NONE mg/dL Cholesterol Total, POC 151 30 - 199 mg/dL Capillary blood 09/04/2024 9 :18 AM CDT Kang Oscar MD POINT OF CARE TEST ORDERABLES Fi nal Result from Last 3 Months Insurance [facility] MEDICARE [employer] MEDICARE [id number] [id number] Care Teams Epic Cupid Analyst Relationship Specialty Start Date End Date Fawad Bess NP [address] [place] [address] PCP - General Nurse Practitioner 11/14/23
--- OUTSIDE RECORDS SUMMARY | 2024-10-12 08:40 | XMS_ITS | Clinical Summary ---
Author Organization [facility] Address [address] [place] [phone] Phone Care Team Providers Care Gang Leader Name Role Phone James Broussard DO Primary Care Provider Allergies No known active allergies Medications allopurinol (ZYLOPRIM) 300 MG tablet 300 mg 6 Active aspirin (ST NASEEM) 81 MG EC tablet 81 mg 6 Active Icosapent Ethyl (Vascepa) 1 g capsule take 2 capsule by oral route 2 times every day with food swallowing whole. Do not chew, open, dissolve and/or crush. 6 Active levothyroxine (Synthroid) 75 MCG tablet 1 Active nebivolol (BYSTOLIC) 2.5 MG tablet Take 2.5 mg by mouth daily 2 Active nitroglycerin (NITROSTAT) 0.[address] 0.4 mg under the tongue 2 Active pantoprazole (PROTONIX) 40 MG EC tablet Take 40 mg by mouth daily Active rosuvastatin (CRESTOR) 40 MG tablet Take 40 mg by mouth daily 2 Active Active Problems Problem Noted Date Diagnosed Date Restless sleep 09/06/2019 Severe obesity 02/22/2018 Allergic rhinitis 09/08/2016 Overview (10/27/2021): Last Assessment & Plan: Ryan esparza Body mass index 30+ - obesity 09/08/2016 Obstructive sleep apnea syndrome 09/08/2016 Dyslipidemia 08/04/2016 History of non-ST segment elevation myocardial i nfarction 08/04/2016 History of placement of stent for coronary arter y disease 08/04/2016 Benign hypertension 01/27/2016 Overview (10/27/2021): HTN (hypertension), benign Disease type AND/OR category unknown 01/27/2016 Overview (10/27/2021): S/P coronary artery stent placement Drug-induced erectile dysfunction 01/27/2016 Overview (10/27/2021): Drug-induced erectile dysfunction Myocardial infarction 01/27/2016 Overview (10/27/2021): NSTEMI (non-ST elevated myocardial infarction) Coronary atherosclerosis 12/02/2015 Overview (10/27/2021): Coronary artery disease involving [place] coronary artery of [place] heart without angina pectoris Mixed hyperlipidemia 12/02/2015 Overview (10/27/2021): Mixed hyperlipidemia Immunizations Immunization Administration Dates Next Due Sars-cov-2, Unspecified 12/10/2020,05/28/2020, Tdap 11/03/2017 Family History Medical History Relation Comments Kidney cancer Father Lung cancer Father Hypertension Mother Relation Status Comments Father Mother Social History Tobacco Use Types Packs/Day Years Used Date Smoking Tobacco: Former Smokeless Tobacco: Never Tobacco Cessation:Counseling Given: Not Answered Alcohol Use Standard Drinks/Week Comments Yes 0 (1 standard drink = 0.6 oz pur e alcohol) Sex and Gender Information Value Date Recorded Sex Assigned at Not on file Legal Sex Male 9:44 AM MDT Gender Identity Not on file Sexual Orientation Not on file Last Filed Vital Signs Vital Sign Reading Time Taken Comments Blood Pressure 130/74 02/01/2022 1:31 PM [employer] CHECKER Pulse - - Temperature 35.8 C (96.5 F) 02/01/2022 1:31 PM [employer] Respiratory Rate 18 02/01/2022 1:31 PM [employer]ER Oxygen Saturation - - Inhaled Oxygen Concentration - - Weight 121 kg (267 lb) 02/01/2022 1:31 PM [employer] Height 185.4 cm (6' 1) 02/01/2022 1:31 PM [employer] Body Mass Index 35.23 02/01/2022 1:31 PM [employer] CHECKER Plan of Treatment Health Maintenance Due Date Last Done Comments Pneumococcal PPSV23/PCV13 65 + Years / Low and Medium Risk (1 of 2 - PCV) 2004 Influenza Vaccine (#1) 2024 Insurance MEDICARE [facility] Care Teams Gang Leader Relationship Specialty Start Date End Date James Broussard DO [address] [place] [address] PCP - General Internal Medicine 09/21/21
== END 2024-10-12 08:35 | disposition home or self-care (01) ==
PROVIDERS: PCP Nurse Practitioner; Visit Provider Nurse Practitioner
DX: M19.011 Primary osteoarthritis, right shoulder (principal)
CPT/HCPCS: 73030